=== PATIENT | female | born 1990 | race Caucasian/White ===

== ENCOUNTER 2024-12-01 13:25 | Inpatient (IN) | payer MEDICARE, MEDICAID ==
[~2024-12-01] VITALS: Ht 154.9 cm; Wt 69.4 kg
[2024-12-01] MEDS ORDERED: DIPH-1243 PO (13:42)
[2024-12-01] MEDS ORDERED: BISM-171 PO (13:42)
[2024-12-01] MEDS ORDERED: LORA0.5T20 PO (13:42)
[2024-12-01] MEDS ORDERED: METF-81 PO (13:42)
[2024-12-01] MEDS ORDERED: DOXY-354 PO (13:42)
[2024-12-01] MEDS ORDERED: PYRI50TA11 PO (13:42)
[2024-12-01] MEDS ORDERED: DESL5TAB39 PO (13:42)
[2024-12-01 14:03] LABS: PLATELET COUNT (AUTO) 332 K/uL (150-450); RED BLOOD CELL COUNT(AUTO) 4.23 MIL/uL (4.00-5.20); RED CELL DISTRIBUTION WIDTH 14.2 % (11.5-14.5); WHITE BLOOD COUNT (AUTO) 9.3 K/uL (4.5-11.0)
[2024-12-01 14:06] VITALS: O2SAT 99
[2024-12-01 14:07] LABS: CALCIUM, TOTAL 8.8 mg/dL (8.8-10.5); CREATININE 0.69 mg/dL (0.60-1.30); GLOMERULAR FILTR. RATE CALC > 60 mL/min (>60); GLUCOSE,RANDOM 88 mg/dL (70-110); SODIUM SERUM 137 mmol/L (136-145); UREA NITROGEN, BLOOD 10 mg/dL (7-18)
[2024-12-01 14:40] LABS: COVID AG,FIA SOURCE NASAL SWAB
[2024-12-01] MEDS ORDERED: ZOLPIDEM TARTRATE 10 MG TABLET PO PRN (14:45)
[2024-12-01 14:58] LABS: SARS-COV2 (COVID) ANTIGEN,FIA Negative (Negative)
[2024-12-01] MEDS: BENZTROPINE MESYLATE 2 MG TABLET PO ONE (16:04)
[2024-12-02 01:10] VITALS: BP 94/56; PULSE 76; RESP 16; TEMP 97.7; O2SAT 97
[2024-12-02] MEDS ORDERED: ONDANSETRON 4 MG TABLET PO PRN (07:45)
[2024-12-02] MEDS ORDERED: ALBUTEROL SULFATE HFA 90 MCG/PUFF 8 GM INHALER IH PRN (07:45)
[2024-12-02] MEDS ORDERED: BENZOCAINE/MENTHOL [CEPACOL] LOZENGE PO PRN (07:45)
[2024-12-02] MEDS ORDERED: BACITRACIN 28 GM OINTMENT TP PRN (07:45)
[2024-12-02] MEDS ORDERED: MAGNESIUM HYDROXIDE SUSPENSION 30 ML UDCUP PO PRN (07:45)
[2024-12-02] MEDS ORDERED: PETROLATUM,WHITE 28 GM JELLY TP PRN (07:45)
[2024-12-02] MEDS ORDERED: IBUPROFEN 600 MG TABLET PO PRN (07:45)
[2024-12-02] MEDS ORDERED: CHLORHEXIDINE GLUCONATE 2% TOWELETTE [2'S/6'S] TP PRN (07:45)
[2024-12-02] MEDS ORDERED: MAG HYDROX/ALUMINUM HYD/SIMETH ES 30 ML SUSPENSION UDCUP PO PRN (07:45)
[2024-12-02] MEDS ORDERED: OMEPRAZOLE 20 MG CAPSULE PO PRN (07:45)
[2024-12-02] MEDS ORDERED: DOCUSATE SODIUM 100 MG CAPSULE PO PRN (07:45)
[2024-12-02] MEDS ORDERED: LOPERAMIDE HCL 2 MG CAPSULE PO PRN (07:45)
[2024-12-02 08:27] VITALS: BP 106/76; PULSE 79; RESP 18; TEMP 98.2; O2SAT 99
[2024-12-02 09:03] LABS: CHOL/HDL RATIO 4.3 (3.9-5.7); LDL CHOL (CALC.) 102.0 mg/dL (0-130)
[2024-12-02] MEDS: DOXYCYCLINE HYCLATE 100 MG TABLET PO SCH (10:36)
[2024-12-02] MEDS: CLINDAMYCIN PHOS 1% 30 GM GEL TP SCH (12:55)
[2024-12-02] MEDS: DESLORATADINE 5 MG PO SCH (12:57)
[2024-12-02] MEDS: PYRIDOXINE HCL 50 MG TABLET PO SCH (12:57)
[2024-12-02] MEDS: MetFORMIN HCL 500 MG ER TABLET PO SCH (16:30)
[2024-12-02 20:28] VITALS: BP 111/82; PULSE 78; RESP 17; TEMP 97.5; O2SAT 99
[2024-12-03 08:34] VITALS: BP 106/60; PULSE 82; RESP 17; TEMP 98; O2SAT 97
[2024-12-03 09:22] LABS: CHOL/HDL RATIO 4.0 (3.9-5.7); LDL CHOL (CALC.) 120.0 mg/dL (0-130)
[2024-12-03 20:12] VITALS: BP 101/57; PULSE 70; RESP 18; TEMP 97.8
[2024-12-04 09:10] VITALS: BP 106/62; PULSE 67; RESP 18; TEMP 97.9; O2SAT 97
[2024-12-04 20:14] VITALS: BP 107/56; PULSE 67; RESP 18; TEMP 97.5; O2SAT 100
[2024-12-05 08:25] VITALS: BP 106/62; PULSE 73; RESP 16; TEMP 98.2; O2SAT 99
[2024-12-05 16:45] VITALS: BP 111/54; PULSE 73; RESP 16; TEMP 98; O2SAT 99
[2024-12-05 20:42] VITALS: BP 107/65; PULSE 70; RESP 18; TEMP 97.7; O2SAT 97
[2024-12-06 08:26] VITALS: BP 118/60; PULSE 86; RESP 17; TEMP 98.3; O2SAT 100
[2024-12-06 20:21] VITALS: BP 115/71; PULSE 87; RESP 18; TEMP 97.3; O2SAT 96
[2024-12-07] MEDS ORDERED: RISP-31 PO (05:42)
[2024-12-07 08:19] VITALS: BP 115/69; PULSE 92; RESP 17; TEMP 97.7; O2SAT 98
[2024-12-07 12:50] VITALS: BP 118/71; PULSE 95; RESP 17; TEMP 98.2; O2SAT 98
[2024-12-07] MEDS: ACETAMINOPHEN 325 MG TABLET PO PRN (12:50)
[2024-12-07 13:50] VITALS: BP 115/70; PULSE 98; RESP 17; TEMP 98; O2SAT 98
== END 2024-12-07 17:09 | disposition home or self-care (01) | DRG 885 ==
LOC: EMS 13:28 → EDBD 13:28 → B2X 19:09
PROVIDERS: ADMIT Psychiatry & Neurology Psychiatry; ATTEND Psychiatry & Neurology Psychiatry
PROC: GZ56ZZZ Individual Psychotherapy, Supportive (ICD-10-PCS; principal; 2024-12-02)
DX: F25.9 Schizoaffective disorder, unspecified (principal); F41.9 Anxiety disorder, unspecified; G47.00 Insomnia, unspecified; K59.00 Constipation, unspecified; E66.9 Obesity, unspecified; L73.2 Hidradenitis suppurativa; G80.9 Cerebral palsy, unspecified; K21.9 Gastro-esophageal reflux disease without esophagitis; F81.9 Developmental disorder of scholastic skills, unspecified; Z20.822 Contact with and (suspected) exposure to COVID-19; E88.810 Metabolic syndrome; F84.0 Autistic disorder; Z79.899 Other long term (current) drug therapy
CPT/HCPCS: 80048; 80061; 83036; 84443; 84703; 85025; G0480